=== PATIENT | female | born 1960 | race African-American/Black ===

== ENCOUNTER 2019-04-03 15:17 | Inpatient (IN) | payer BC, MEDICAID ==
[~2019-04-03] VITALS: Ht 167.6 cm; Wt 113.0 kg
[2019-04-03] MEDS ORDERED: SODIUM CHLORIDE 0.9% 1,000 ML IV ONE (15:59)
[2019-04-03] MEDS ORDERED: TRAMADOL 50MG TABLET PO ONE (16:00)
[2019-04-03 16:24] LABS: BASOPHILS % 1.1 % (0.0-2.0); EOSINOPHILS % 4.9 % (0.0-5.0); HEMATOCRIT. 36.6 % (36.0-48.0); HEMOGLOBIN. 12.5 g/dL (12.0-16.0); LYMPHOCYTES % 28.5 % (20.0-50.0); MEAN CORPUSCULAR HEMOGLOBIN 30.7 pg (28.0-32.0); MEAN CORPUSCULAR VOLUME 89.7 fL (81.0-99.0); MEAN PLATELET VOLUME 6.9 fl (7.4-10.4); MONOCYTES % 6.8 % (2.0-8.0); NEUTROPHILS % 58.7 % (40.0-76.0); PLATELET 429 x1000/uL (130-400); RED BLOOD CELL COUNT 4.08 mill/uL (4.2-5.4); RED CELL DISTRIBUTION WIDTH 14.7 % (11.6-14.6)
[2019-04-03 16:30] LABS: CHLORIDE 102 mEq/L (98-107)
[2019-04-03 16:34] LABS: ETHANOL BLOOD < 10 mg/dL
[2019-04-03 17:00] LABS: CLARITY URINE CLEAR (CLEAR); COLOR URINE YELLOW (YELLOW); KETONES URINE NEGATIVE (NEGATIVE); LEUKOCYTE ESTERASE URINE NEGATIVE (NEGATIVE); NITRITE URINE NEGATIVE (NEGATIVE); OCCULT BLOOD URINE NEGATIVE (NEGATIVE); PROTEIN URINE NEGATIVE (NEGATIVE); SPECIFIC GRAVITY URINE 1.008 (1.005-1.030); UROBILINOGEN URINE 0.2 E.U./dL (0.2-1.0)
[2019-04-03 17:13] LABS: *AMPHETAMINES SCREEN URINE NEGATIVE (NEGATIVE); *BARBITURATES SCREEN URINE NEGATIVE (NEGATIVE); *BENZODIAZEPINES SCREEN URINE NEGATIVE (NEGATIVE); *COCAINE SCREEN URINE NEGATIVE (NEGATIVE); METHADONE URINE SCREEN NEGATIVE (NEGATIVE); OPIATES URINE SCREEN NEGATIVE (NEGATIVE)
[2019-04-03 17:14] LABS: CANNABINOID URINE SCREEN NEGATIVE (NEGATIVE); PHENCYCLIDINE URINE SCREEN NEGATIVE (NEGATIVE)
[2019-04-03] MEDS ORDERED: MORPHINE SULFATE 4 MG/ML CPJ (NOT FOR IM USE) IV ONE (18:30)
[2019-04-03] MEDS ORDERED: ONDANSETRON HCL 4MG/2ML INJ IV ONE (18:30)
[2019-04-03] MEDS ORDERED: ONDANSETRON HCL 4MG/2ML INJ IV PRN (19:45)
[2019-04-03] MEDS ORDERED: HYDROCODONE/ACETAMINOPHEN 5/325MG TABLET PO PRN (19:45)
[2019-04-03] MEDS ORDERED: ACETAMINOPHEN 325MG TABLET PO PRN (19:45)
[2019-04-03 22:40] VITALS: BP 137/71
[2019-04-03] MEDS ORDERED: AMLO10TA80 PO (23:26)
[2019-04-03] MEDS ORDERED: FOLI1TAB33 PO (23:26)
[2019-04-03] MEDS ORDERED: VENL150T3 PO (23:26)
[2019-04-03] MEDS ORDERED: METO-539 PO (23:26)
[2019-04-03] MEDS ORDERED: CLON1TAB12 PO (23:26)
[2019-04-03] MEDS ORDERED: MELA10TA3 PO (23:27)
[2019-04-03] MEDS: MORPHINE SULFATE 2 MG/ML CPJ (NOT FOR IM USE) IV PRN (23:55)
[2019-04-04 04:00] VITALS: BP 103/58
[2019-04-04] MEDS: ZOLPIDEM TARTRATE 5MG TABLET PO PRN (05:12)
[2019-04-04] MEDS ORDERED: PNEUMOCOCCAL 23-VAL P-SAC VAC 0.5 ML IM ONE (06:00)
[2019-04-04 06:53] LABS: BASOPHILS % 0.6 % (0.0-2.0); EOSINOPHILS % 4.3 % (0.0-5.0); HEMATOCRIT. 32.6 % (36.0-48.0); HEMOGLOBIN. 10.9 g/dL (12.0-16.0); LYMPHOCYTES % 30.3 % (20.0-50.0); MEAN CORPUSCULAR HEMOGLOBIN 30.6 pg (28.0-32.0); MEAN CORPUSCULAR VOLUME 91.4 fL (81.0-99.0); MONOCYTES % 8.6 % (2.0-8.0); NEUTROPHILS % 56.2 % (40.0-76.0); PLATELET 371 x1000/uL (130-400); RED BLOOD CELL COUNT 3.57 mill/uL (4.2-5.4); RED CELL DISTRIBUTION WIDTH 14.6 % (11.6-14.6)
[2019-04-04 07:09] LABS: CHLORIDE 103 mEq/L (98-107)
[2019-04-04 08:00] VITALS: BP 131/59
[2019-04-04] MEDS ORDERED: POTASSIUM CHLORIDE 20MEQ TABLET SR PO NR (08:00)
[2019-04-04 08:05] VITALS: BP 131/61
[2019-04-04] MEDS: HYDROMORPHONE HCL/PF 2MG/ML CPJ IV PRN ×2 (09:07→15:07)
[2019-04-04] MEDS ORDERED: ENOXAPARIN 40MG/0.4ML SYR SUBCUT SCH (11:30)
[2019-04-04 12:00] VITALS: BP 130/66
[2019-04-04] MEDS ORDERED: BACITRACIN 50,000 UNITS/VIAL ONE (15:54)
[2019-04-04] MEDS ORDERED: LIDOCAINE HCL 1% 20ML VIAL (Pyxis) INJ ONE ×2 (15:54→17:41)
[2019-04-04] MEDS ORDERED: BUPIVACAINE HCL/PF 0.5% (5MG/ML) 10ML ONE (15:54)
[2019-04-04 16:00] VITALS: BP 131/69
[2019-04-04] MEDS ORDERED: FENTANYL CITRATE/PF 50MCG/ML 2ML VIAL ONE (17:40)
[2019-04-04] MEDS ORDERED: CEFAZOLIN SODIUM 1000MG/VIAL ONE (17:41)
[2019-04-04] MEDS ORDERED: PROPOFOL 200MG/20ML VIAL IV ONE (17:41)
[2019-04-04] MEDS ORDERED: MIDAZOLAM HCL 2 MG/2 ML VIAL ONE (17:41)
[2019-04-04] MEDS ORDERED: SODIUM CHLORIDE 0.9% 10ML VIAL ONE (17:41)
[2019-04-04] MEDS ORDERED: ONDANSETRON HCL 4MG/2ML INJ ONE (17:47)
[2019-04-04] MEDS ORDERED: METOCLOPRAMIDE HCL 10MG/2ML VIAL ONE (17:47)
[2019-04-04] MEDS ORDERED: BUPIVACAINE HCL/PF 0.25% (2.5MG/ML) 10ML ONE (18:18)
[2019-04-04] MEDS ORDERED: VANCOMYCIN HCL 500 MG/VIAL ONE (18:19)
[2019-04-04] MEDS ORDERED: HYDROMORPHONE HCL/PF 2MG/ML CPJ IV PRN (19:15)
[2019-04-04] MEDS ORDERED: MEPERIDINE HCL/PF 25MG/ML CPJ IV PRN (19:15)
[2019-04-04 20:30] VITALS: BP 154/57
[2019-04-04] MEDS: MORPHINE SULFATE 2 MG/ML CPJ (NOT FOR IM USE) IV PRN (22:29)
[2019-04-05] VITALS: BP 128/66
[2019-04-05] MEDS: HYDROMORPHONE HCL/PF 2MG/ML CPJ IV PRN ×5 (02:51→20:20)
[2019-04-05] MEDS: CEFAZOLIN 2,000 MG in DEXT 5% WATER 100 ML IV SCH ×2 (02:51→11:53)
[2019-04-05 04:00] VITALS: BP 115/52
[2019-04-05 08:30] VITALS: BP 144/66
[2019-04-05] MEDS: MORPHINE SULFATE 2 MG/ML CPJ (NOT FOR IM USE) IV PRN (09:12)
[2019-04-05 12:28] VITALS: BP 147/57
[2019-04-05 16:23] VITALS: BP 126/56
[2019-04-05 20:52] VITALS: BP 118/48
[2019-04-05] MEDS: ZOLPIDEM TARTRATE 5MG TABLET PO PRN (23:58)
[2019-04-06] VITALS: BP 148/55
[2019-04-06] MEDS: HYDROMORPHONE HCL/PF 2MG/ML CPJ IV PRN ×3 (02:22→18:27)
[2019-04-06 04:00] VITALS: BP 109/55
[2019-04-06 08:51] VITALS: BP 156/74
[2019-04-06] MEDS: HYDROCODONE/ACETAMINOPHEN 5/325MG TABLET PO PRN ×2 (09:14→22:52)
[2019-04-06 09:15] LABS: BASOPHILS % 0.8 % (0.0-2.0); EOSINOPHILS % 2.8 % (0.0-5.0); HEMATOCRIT. 32.8 % (36.0-48.0); HEMOGLOBIN. 10.9 g/dL (12.0-16.0); LYMPHOCYTES % 23.7 % (20.0-50.0); MEAN CORPUSCULAR HEMOGLOBIN 30.2 pg (28.0-32.0); MEAN CORPUSCULAR VOLUME 91.2 fL (81.0-99.0); MEAN PLATELET VOLUME 7.3 fl (7.4-10.4); MONOCYTES % 7.2 % (2.0-8.0); NEUTROPHILS % 65.5 % (40.0-76.0); PLATELET 364 x1000/uL (130-400); RED BLOOD CELL COUNT 3.59 mill/uL (4.2-5.4); RED CELL DISTRIBUTION WIDTH 14.5 % (11.6-14.6)
[2019-04-06 09:18] LABS: CHLORIDE 100 mEq/L (98-107)
[2019-04-06] MEDS ORDERED: VENLAFAXINE HCL 50MG TABLET PO SCH (11:45)
[2019-04-06 12:29] VITALS: BP 153/76
[2019-04-06] MEDS: AMLODIPINE 10MG TABLET PO SCH (13:52)
[2019-04-06] MEDS: FOLIC ACID/VITAMIN B COMP W-C TABLET PO SCH (13:52)
[2019-04-06] MEDS: METOPROLOL TARTRATE 50MG TABLET PO SCH (13:52)
[2019-04-06] MEDS: VENLAFAXINE HCL 50MG TABLET PO SCH ×2 (15:08→18:26)
[2019-04-06 16:20] VITALS: BP 138/73
[2019-04-06] MEDS: DOCUSATE SODIUM 250MG CAPSULE PO SCH (18:26)
[2019-04-06 20:00] VITALS: BP 124/43
[2019-04-06] MEDS: CLONAZEPAM 1MG TABLET PO SCH (21:13)
[2019-04-06] MEDS: ENOXAPARIN 30MG/0.3ML SYR SUBCUT SCH (21:14)
[2019-04-06] MEDS: ZOLPIDEM TARTRATE 5MG TABLET PO PRN (23:53)
[2019-04-07] VITALS (7 sets, daily range): BP systolic 100–149; BP diastolic 48–62
[2019-04-07] MEDS: HYDROMORPHONE HCL/PF 2MG/ML CPJ IV PRN ×4 (04:41→21:19)
[2019-04-07 06:48] LABS: CHLORIDE 99 mEq/L (98-107)
[2019-04-07 06:57] LABS: BASOPHILS % 0.8 % (0.0-2.0); EOSINOPHILS % 5.6 % (0.0-5.0); HEMATOCRIT. 30.7 % (36.0-48.0); HEMOGLOBIN. 10.4 g/dL (12.0-16.0); LYMPHOCYTES % 30.1 % (20.0-50.0); MEAN CORPUSCULAR HEMOGLOBIN 31.1 pg (28.0-32.0); MEAN CORPUSCULAR VOLUME 91.9 fL (81.0-99.0); MEAN PLATELET VOLUME 7.4 fl (7.4-10.4); MONOCYTES % 8.5 % (2.0-8.0); PLATELET 361 x1000/uL (130-400); RED BLOOD CELL COUNT 3.34 mill/uL (4.2-5.4); RED CELL DISTRIBUTION WIDTH 14.4 % (11.6-14.6)
[2019-04-07] MEDS: FOLIC ACID/VITAMIN B COMP W-C TABLET PO SCH (08:50)
[2019-04-07] MEDS: DOCUSATE SODIUM 250MG CAPSULE PO SCH (08:50)
[2019-04-07] MEDS: VENLAFAXINE HCL 50MG TABLET PO SCH ×3 (08:50→17:53)
[2019-04-07] MEDS: METOPROLOL TARTRATE 50MG TABLET PO SCH (08:51)
[2019-04-07] MEDS: AMLODIPINE 10MG TABLET PO SCH (08:51)
[2019-04-07] MEDS: ENOXAPARIN 30MG/0.3ML SYR SUBCUT SCH ×2 (08:52→21:17)
[2019-04-07] MEDS ORDERED: TRAMADOL 50MG TABLET PO PRN (10:30)
[2019-04-07] MEDS ORDERED: DIPHENHYDRAMINE 50MG/ML VIAL IV PRN (10:30)
[2019-04-07] MEDS: OXYCODONE HCL/ACETAMINOPHEN 5/325MG TABLET PO PRN (17:57)
[2019-04-07] MEDS: CLONAZEPAM 1MG TABLET PO SCH (21:17)
[2019-04-07] MEDS: ZOLPIDEM TARTRATE 5MG TABLET PO PRN (22:49)
[2019-04-08 00:48] VITALS: BP 126/49
[2019-04-08 04:50] VITALS: BP 127/50
[2019-04-08] MEDS: HYDROMORPHONE HCL/PF 2MG/ML CPJ IV PRN ×3 (06:12→22:03)
[2019-04-08 08:00] VITALS: BP 145/66
[2019-04-08] MEDS: DOCUSATE SODIUM 250MG CAPSULE PO SCH (09:28)
[2019-04-08] MEDS: AMLODIPINE 10MG TABLET PO SCH (09:29)
[2019-04-08] MEDS: VENLAFAXINE HCL 50MG TABLET PO SCH ×3 (09:29→19:11)
[2019-04-08] MEDS: METOPROLOL TARTRATE 50MG TABLET PO SCH (09:29)
[2019-04-08] MEDS: ENOXAPARIN 30MG/0.3ML SYR SUBCUT SCH ×2 (09:32→20:41)
[2019-04-08] MEDS: OXYCODONE HCL/ACETAMINOPHEN 5/325MG TABLET PO PRN ×2 (09:32→17:16)
[2019-04-08 12:00] VITALS: BP 144/63
[2019-04-08] MEDS: FOLIC ACID/VITAMIN B COMP W-C TABLET PO SCH (13:16)
[2019-04-08 16:00] VITALS: BP 111/67
[2019-04-08 20:32] VITALS: BP 127/80
[2019-04-08] MEDS: CLONAZEPAM 1MG TABLET PO SCH (20:40)
[2019-04-09 00:46] VITALS: BP 142/52
[2019-04-09 04:00] VITALS: BP 125/47
[2019-04-09] MEDS: HYDROMORPHONE HCL/PF 2MG/ML CPJ IV PRN ×3 (04:28→13:21)
[2019-04-09 07:23] LABS: BASOPHILS % 1.3 % (0.0-2.0); EOSINOPHILS % 5.6 % (0.0-5.0); HEMATOCRIT. 31.5 % (36.0-48.0); HEMOGLOBIN. 10.7 g/dL (12.0-16.0); LYMPHOCYTES % 28.1 % (20.0-50.0); MEAN CORPUSCULAR HEMOGLOBIN 30.9 pg (28.0-32.0); MEAN PLATELET VOLUME 7.1 fl (7.4-10.4); MONOCYTES % 8.5 % (2.0-8.0); NEUTROPHILS % 56.5 % (40.0-76.0); PLATELET 450 x1000/uL (130-400); RED BLOOD CELL COUNT 3.46 mill/uL (4.2-5.4); RED CELL DISTRIBUTION WIDTH 14.6 % (11.6-14.6)
[2019-04-09 07:26] LABS: CHLORIDE 99 mEq/L (98-107)
[2019-04-09 08:00] VITALS: BP 126/61
[2019-04-09] MEDS: VENLAFAXINE HCL 50MG TABLET PO SCH ×2 (08:48→13:19)
[2019-04-09] MEDS: DOCUSATE SODIUM 250MG CAPSULE PO SCH (08:48)
[2019-04-09] MEDS: FOLIC ACID/VITAMIN B COMP W-C TABLET PO SCH (08:48)
[2019-04-09] MEDS: AMLODIPINE 10MG TABLET PO SCH (08:49)
[2019-04-09] MEDS: METOPROLOL TARTRATE 50MG TABLET PO SCH (08:49)
[2019-04-09] MEDS: ENOXAPARIN 30MG/0.3ML SYR SUBCUT SCH (08:54)
[2019-04-09 12:00] VITALS: BP 142/79
[2019-04-09 15:10] VITALS: BP 142/79
== END 2019-04-09 19:25 | disposition home or self-care (01) | DRG 313 ==
LOC: ER 15:17 → 6WST 18:14 → EDBEDREQTM 18:18 → EDBEDREQSVC 18:18 → EDBEDREQ 18:18 → ENRESERV 20:51
PROVIDERS: ADMIT Internal Medicine; ATTEND Internal Medicine
PROC: 0QSJ04Z Reposition Right Fibula with Internal Fixation Device, Open Approach (ICD-10-PCS; principal; 2019-04-03)
PROC: 0QSG04Z Reposition Right Tibia with Internal Fixation Device, Open Approach (ICD-10-PCS; 2019-04-03)
DX: S82.891A Other fracture of right lower leg, initial encounter for closed fracture (principal); N17.0 Acute kidney failure with tubular necrosis; G90.8 Other disorders of autonomic nervous system; S82.201A Unspecified fracture of shaft of right tibia, initial encounter for closed fracture; Z68.41 Body mass index [BMI] 40.0-44.9, adult; D64.9 Anemia, unspecified; S82.401A Unspecified fracture of shaft of right fibula, initial encounter for closed fracture; E66.9 Obesity, unspecified; S93.04XA Dislocation of right ankle joint, initial encounter; E87.6 Hypokalemia; I10 Essential (primary) hypertension; Z86.73 Personal history of transient ischemic attack (TIA), and cerebral infarction without residual deficits; Z47.89 Encounter for other orthopedic aftercare; Z90.49 Acquired absence of other specified parts of digestive tract; Z71.3 Dietary counseling and surveillance; R00.0 Tachycardia, unspecified; W18.39XA Other fall on same level, initial encounter; Y93.89 Activity, other specified; Y92.89 Other specified places as the place of occurrence of the external cause
CPT/HCPCS: 36415; 71045; 72220; 73590; 73600; 73610; 73630; 76000; 80048; 80061; 80305; 80320; 81003; 82962; 83036; 83880; 84132; 84443; 84484; 86850; 86900; 90732; 93005; 93306; 96374; 97110; 97162; 97166; 97530; 97535; 99285; C1713; C1769; C1893; J0690; J1170; J1650; J2250; J2270; J2405; J2704; J2765; J3010; J3370; J3490; J7030; J7040; J7060; G0480